=== PATIENT | female | born 1995 | race American Indian/Alaskan Native ===

== ENCOUNTER 2016-12-14 10:28 | Outpatient (CLI) | payer MEDICAID ==
[~2016-12-14] VITALS: Ht 162.6 cm; Wt 90.4 kg
[~2016-12-14 10:28] MED LIST: PREN1TAB56 PO
[2016-12-14 10:38] VITALS: BP 107/64
== END 2016-12-14 11:24 | disposition home or self-care (01) ==
LOC: LDOP 10:28
PROVIDERS: ATTEND Obstetrics & Gynecology
DX: O26.893 Other specified pregnancy related conditions, third trimester (principal); R10.9 Unspecified abdominal pain; O21.9 Vomiting of pregnancy, unspecified; O42.92 Full-term premature rupture of membranes, unspecified as to length of time between rupture and onset of labor; Z3A.37 37 weeks gestation of pregnancy
CPT/HCPCS: 59025; 99201; G0463

== ENCOUNTER 2017-10-26 12:36 | Emergency (ER) | payer MEDICAID ==
[~2017-10-26] VITALS: Ht 162.6 cm; Wt 78.0 kg
[~2017-10-26 12:36] MED LIST changes: +IBUP-1223 PO; +OXYC-302 PO
[2017-10-26 12:44] VITALS: BP 115/69
[2017-10-26] MEDS ORDERED: KETOROLAC 30 MG/1 ML ONE (13:12)
[2017-10-26] MEDS ORDERED: KETOROLAC 30 MG/1 ML IM ONE (13:30)
== END 2017-10-26 13:59 | disposition home or self-care (01) ==
LOC: ED 13:30
DX: S39.012A Strain of muscle, fascia and tendon of lower back, initial encounter (principal); X58.XXXA Exposure to other specified factors, initial encounter; Y93.89 Activity, other specified; Y92.89 Other specified places as the place of occurrence of the external cause; Y99.8 Other external cause status
CPT/HCPCS: 72110; 96372; 99284; J1885

== ENCOUNTER 2018-06-30 10:24 | Emergency (ER) | payer MEDICAID ==
[~2018-06-30] VITALS: Ht 162.6 cm; Wt 87.9 kg
[2018-06-30] MEDS ORDERED: KETOROLAC 30 MG/1 ML IM ONE (11:30)
[2018-06-30] MEDS ORDERED: KETOROLAC 30 MG/1 ML ONE (12:01)
[2018-06-30 12:08] LABS: BASOPHILS # (AUTO) 0.08 x10^3/uL (0-0.1); BASOPHILS % (AUTO) 1 % (0-1); EOSINOPHILS # (AUTO) 0.53 x10^3/uL (0-0.4); EOSINOPHILS % (AUTO) 4 % (1-7); LYMPHOCYTES # (AUTO) 2.45 x10^3/uL (1-3.4); LYMPHOCYTES % (AUTO) 19 % (22-44); MD NO; MEAN CORPUSCULAR HEMOGLOBIN 27.6 pg (27.0-34.8); MEAN CORPUSCULAR HGB CONC 33.3 g/dL (32.4-35.8); MEAN CORPUSCULAR VOLUME 82.9 fL (80-100); MEAN PLATELET VOLUME 8.3 fL (7.4-10.4); MONOCYTES # (AUTO) 0.67 x10^3/uL (0.2-0.8); MONOCYTES % (AUTO) 5 % (2-9); NEUTROPHILS # (AUTO) 8.98 x10^3/uL (1.8-6.8); NEUTROPHILS % (AUTO) 71 % (42-75); PLATELET COUNT 392 x10^3/uL (130-400); RED BLOOD COUNT 4.92 x10^6/uL (3.82-5.3); RED CELL DISTRIBUTION WIDTH 14.9 % (9.6-15.2)
[2018-06-30 12:10] LABS: ALANINE AMINOTRANSFERASE 29 U/L (12-78); ALBUMIN 3.5 g/dL (3.4-5.0); ANION GAP 5 mmol/L (5-15); CALCIUM 7.9 mg/dL (8.5-10.1); CHLORIDE 104 mmol/L (98-107); CREATININE 1.15 mg/dL (0.55-1.02)
[2018-06-30 12:12] LABS: ALKALINE PHOSPHATASE 151 U/L (45-117); BILIRUBIN,TOTAL 0.2 mg/dL (0.2-1.0); TOTAL PROTEIN 7.5 g/dL (6.4-8.2)
[2018-06-30 12:46] LABS: HCG UR SG 1.023 (1.003-1.030)
[2018-06-30 12:52] LABS: CULTURE INDICATED? YES; MICROSCOPIC INDICATED
[2018-06-30 13:40] VITALS: BP 110/62
== END 2018-06-30 13:59 | disposition home or self-care (01) ==
LOC: ED 11:30
DX: N83.292 Other ovarian cyst, left side (principal)
CPT/HCPCS: 36415; 76830; 80053; 81001; 81025; 85025; 87086; 96372; 99285; J1885

== ENCOUNTER 2018-08-12 11:02 | Emergency (ER) | payer MEDICAID ==
[~2018-08-12] VITALS: Ht 162.6 cm; Wt 85.0 kg
[2018-08-12] MEDS ORDERED: KETOROLAC 30 MG/1 ML ONE (11:52)
[2018-08-12] MEDS ORDERED: KETOROLAC 30 MG/1 ML IM ONE (12:00)
[2018-08-12 14:09] VITALS: BP 116/73
== END 2018-08-12 14:22 | disposition home or self-care (01) ==
LOC: ED 14:16
DX: M25.532 Pain in left wrist (principal); M77.9 Enthesopathy, unspecified
CPT/HCPCS: 29125; 73090; 73110; 96372; 99283; J1885

== ENCOUNTER 2019-02-22 21:15 | Emergency (ER) | payer MEDICAID ==
[~2019-02-22] VITALS: Ht 162.6 cm; Wt 78.5 kg
[2019-02-22] MEDS ORDERED: hydrOXyzine 50MG TABLET ONE (22:25)
--- NOTE | 2019-02-22 22:31 | NUR ---
PT. TO ED WITH C/O LEFT CP AND ARM PAIN STARTING AT 1800 TONGIHT. PAIN IS INTERMITTENT AND SHARP/HEAVY IN NATURE. DENIES ANY CARDIAC HX BUT C/O ANXIETY. PT. REPORTS "IT IS HARD TO GET A DEEP BREATH AND I FEEL LIKE IT'S HARD TO GRASP THINGS". 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 PT. NSR ON MONITOR. VSS. MEDICATED PER NOV. HAS HAD X-RAY COMPLETED AND LABS HAVE BEEN DRAWN. FAMILY AT BS FOR SUPPORT. CALL LIGHT IN REACH. ALL SAFETY MEASURES OBSERVED.
[2019-02-22 22:47] LABS: ALBUMIN 3.5 g/dL (3.4-5.0); ANION GAP 5 mmol/L (5-15); CALCIUM 8.3 mg/dL (8.5-10.1); CHLORIDE 110 mmol/L (98-107); CREATININE 0.88 mg/dL (0.55-1.02)
[2019-02-22 22:48] LABS: BASOPHILS # (AUTO) 0.17 x10^3/uL (0-0.1); BASOPHILS % (AUTO) 1 % (0-1); EOSINOPHILS # (AUTO) 0.07 x10^3/uL (0-0.4); EOSINOPHILS % (AUTO) 1 % (1-7); LYMPHOCYTES # (AUTO) 3.21 x10^3/uL (1-3.4); LYMPHOCYTES % (AUTO) 23 % (22-44); MD NO; MEAN CORPUSCULAR HEMOGLOBIN 23.4 pg (27.0-34.8); MEAN CORPUSCULAR HGB CONC 31.3 g/dL (32.4-35.8); MEAN CORPUSCULAR VOLUME 74.8 fL (80-100); MEAN PLATELET VOLUME 8.2 fL (7.4-10.4); MONOCYTES # (AUTO) 0.89 x10^3/uL (0.2-0.8); MONOCYTES % (AUTO) 6 % (2-9); NEUTROPHILS # (AUTO) 9.68 x10^3/uL (1.8-6.8); NEUTROPHILS % (AUTO) 69 % (42-75); PLATELET COUNT 455 x10^3/uL (130-400); RED BLOOD COUNT 4.52 x10^6/uL (3.82-5.3); RED CELL DISTRIBUTION WIDTH 19.4 % (9.6-15.2)
[2019-02-22 23:25] VITALS: BP 115/69
== END 2019-02-22 23:26 | disposition home or self-care (01) ==
LOC: ED 22:08
DX: R07.89 Other chest pain (principal)
CPT/HCPCS: 36415; 71046; 80048; 82040; 84703; 85025; 93005; 99284; Q0177

== ENCOUNTER 2019-04-18 12:08 | Emergency (ER) | payer MEDICAID ==
[~2019-04-18] VITALS: Ht 162.6 cm; Wt 79.0 kg
[2019-04-18 12:28] VITALS: BP 107/67
[2019-04-18] MEDS ORDERED: IBUPROFEN 200 MG TABLET PO ONE (13:00)
[2019-04-18] MEDS ORDERED: IBUPROFEN 200 MG TABLET ONE (13:16)
== END 2019-04-18 14:29 | disposition home or self-care (01) ==
LOC: ED 13:51
DX: S80.02XA Contusion of left knee, initial encounter (principal); G89.11 Acute pain due to trauma; W01.0XXA Fall on same level from slipping, tripping and stumbling without subsequent striking against object, initial encounter; Y93.89 Activity, other specified; Y92.69 Other specified industrial and construction area as the place of occurrence of the external cause; Y99.8 Other external cause status
CPT/HCPCS: 99283

== ENCOUNTER 2020-05-05 00:01 | Outpatient (CLI) | payer MEDICAID ==
[~2020-05-05] VITALS: Ht 162.6 cm; Wt 90.5 kg
[2020-05-05] MEDS ORDERED: PREN1TAB60 PO (00:15)
[2020-05-05 00:18] VITALS: BP 104/60
[2020-05-05 00:57] LABS: AMPHETAMINE SCREEN, URINE Negative (Negative); BARBITURATE SCREEN, URINE Negative (Negative); BENZODIAZEPINE SCREEN, URINE Negative (Negative); CANNABINOID SCREEN, URINE Negative (Negative); COCAINE SCREEN, URINE Negative (Negative); METHADONE SCREEN, URINE Negative (Negative); OPIATE SCREEN, URINE Negative (Negative)
[2020-05-05 01:05] LABS: MICROSCOPIC INDICATED
== END 2020-05-05 01:22 | disposition home or self-care (01) ==
LOC: LDOP 00:01
PROVIDERS: ATTEND Obstetrics & Gynecology
DX: O62.9 Abnormality of forces of labor, unspecified (principal); Z3A.37 37 weeks gestation of pregnancy
CPT/HCPCS: 59025; 80307; 81001